=== PATIENT | female | born 1990 | race Caucasian/White ===

== ENCOUNTER 2019-11-09 23:48 | Emergency (ER) | payer SELFPAY ==
[2019-11-10 00:12] VITALS: BP 132/80
[2019-11-10] MEDS ORDERED: CYCLOBENZAPRINE HCL 10 MG TABLET PO ONE (00:30)
[2019-11-10] MEDS ORDERED: KETOROLAC TROMETHAMINE 60 MG/2 ML SDV IM ONE (00:30)
--- NOTE | 2019-11-10 00:34 | ER Document Report ---
HPI - HPI Patient complains to provider of: Back pain Time Seen by Provider: 11/10/19 00:24 Pain Level: 5 Context: 29-year-old female past medical history significant for diabetes, depression, hypertension, anemia, chronic back pain presents to the emergency room with worsening back pain that started 3 days ago. Has gotten worse today. Denies any acute trauma or injury. Pain radiates down her legs. Denies any loss control of her bowels or bladder. No saddle anesthesia. No red flags. States is able to walk but is painful. Tried taking Motrin 3 days ago without relief. States she is been smoking marijuana with some relief until today. No history of herniated disks. She denies any chance of . Associated Symptoms: None Exacerbated by: Movement, Walking Relieved by: Denies Similar symptoms previously: Yes - History of chronic back pain Recently seen / treated by doctor: No - ROS Systems Reviewed and Negative: Yes All other systems reviewed and negative - CONSTITUTIONAL Constitutional: DENIES: Fever - NEURO Neurology: DENIES: Weakness - RESPIRATORY Respiratory: DENIES: Trouble Breathing, Coughing - GASTROINTESTINAL Gastrointestinal: DENIES: Abdominal Pain, Nausea - URINARY Urinary: DENIES: Dysuria, Urgency, Frequency - REPRODUCTIVE Reproductive: DENIES: : - MUSCULOSKELETAL Musculoskeletal: REPORTS: Back Pain - DERM Skin Color: Normal Skin Problems: None Past Medical History - General Information source: Patient - Social History Smoking Status: Never Smoker Frequency of alcohol use: None Drug Abuse: Marijuana Family History: Reviewed & Not Pertinent - Past Medical History Cardiac Medical History: Reports: Hx Hypertension Endocrine Medical History: Reports: Hx Diabetes Mellitus Type 2 Psychiatric Medical History: Reports: Hx Depression Other: Anemia Vertical Provider Document - CONSTITUTIONAL Agree With Documented VS: Yes Exam Limitations: No Limitations General Appearance: Moderate Distress - INFECTION CONTROL TRAVEL OUTSIDE OF THE [place] IN LAST 30 DAYS: No - HEENT HEENT: Atraumatic, Normocephalic - NECK Neck: Normal Inspection, Supple, Thyroid Normal - RESPIRATORY Respiratory: Breath Sounds Normal, No Respiratory Distress, Chest Non-Tender - CARDIOVASCULAR Cardiovascular: Regular Rate, Regular Rhythm, No Murmur - BACK Back: Abnormal Inspection - There is tenderness on palpation from L4-S1. Tenderness over the right sciatic notch. Muscle spasms of the lower lumbar region. Positive straight leg raising on the right at 40 degrees. Negative straight leg raising on the left.. negative: CVA Tenderness-Right, CVA Tenderness-Left - MUSCULOSKELETAL/EXTREMETIES Musculoskeletal/Extremeties: FROM, Non-Tender - NEURO Level of Consciousness: Awake, Alert, Appropriate Motor/Sensory: No Motor Deficit, No Sensory Deficit Deep Tendon Reflexes: 2+ - DERM Integumentary: Warm, Dry, No Rash Course - Re-evaluation Re-evalutation: 11/10/19 01:01 Patient is resting and she states she has had some relief in pain. Patient states she feels well enough to go home. Will be discharged home on Flexeril and naproxen. She was counseled on the need to follow-up outpatient with orthopedics as discussed. Patient was given strict return to the emergency room guidelines. Return for any new or worsening symptoms. All questions were answered. Patient verbalized understanding and agrees with plan of care. - Vital Signs Vital signs: Temp Pulse Resp BP Pulse Ox 98.2 F 88 16 132/80 H 99 11/10/19 00:22 11/10/19 00:11 11/10/19 00:11 11/10/19 00:11 11/10/19 00:11 Discharge - Discharge Clinical Impression: Back pain with left-sided sciatica Condition: Stable Disposition: HOME, SELF-CARE Instructions: Low Back Pain ([facility]), Sciatica ([facility]) Additional Instructions: You have been seen in the Emergency Department (ED) today for back pain. Your workup and exam have not shown any acute abnormalities and you are likely suffering from muscle strain or possible problems with your discs, but there is no treatment that will fix your symptoms at this time. Please take the Flexeril and naproxen that has been prescribed as directed. You should also purchase a local lidocaine cream such as "aspercreme with lidocaine" and use per bottle instructions to the affected area. Apply heat to the area as often as you are able. Continue to keep active and avoid prolonged periods of bed rest. Please follow up with your doctor as soon as possible regarding today's ED visit and your back pain. Return to the ED for worsening back pain, fever, weakness or numbness of either leg, or if you develop either (1) an inability to urinate or have bowel movements, or (2) loss of your ability to control your bathroom functions (if you start having "accidents"), or if you develop other new symptoms that concern you.concern you. Prescriptions: Cyclobenzaprine HCl [Flexeril 10 mg Tablet] 10 mg PO TIDP PRN #15 tab PRN Reason: Naproxen 500 mg PO BID PRN #14 tablet PRN Reason: Forms: Return to Work Referrals: [facility] [Provider Group] - Follow up as needed (For follow-up appointment with Dr. Burns if not improving in 2 to 3 days.)
== END 2019-11-10 01:10 | disposition home or self-care (01) ==
LOC: ER 23:48
DX: M54.32 Sciatica, left side (principal); M54.9 Dorsalgia, unspecified; G89.29 Other chronic pain; E11.9 Type 2 diabetes mellitus without complications; I10 Essential (primary) hypertension
CPT/HCPCS: 99284; 96372; J1885

== ENCOUNTER 2019-11-16 10:37 | Emergency (ER) | payer SELFPAY ==
[2019-11-16] MEDS ORDERED: KETOROLAC TROMETHAMINE 60 MG/2 ML SDV IM ONE (11:09)
--- NOTE | 2019-11-16 11:11 | ER Document Report ---
ED Medical Screen (RME) - General Chief Complaint: Leg Pain Stated Complaint: RIGHT LEG PAIN Time Seen by Provider: 11/16/19 11:06 Mode of Arrival: Ambulatory Information source: Patient Notes: Patient is a 29-year-old female presenting to the emergency department with complaints of sudden onset right posterior leg pain. She reports the pain is up behind her thigh. She denies any known injury, denies any history of this. Denies any history of DVT, she is a non-smoker, she is not on any OCPs, she has not had any recent travel. We will have patient seen in the back so she can be in the bed and have a full evaluation as exam is limited due to position in triage and lack of patient gown. I have greeted and performed a rapid initial assessment of this patient. A comprehensive ED assessment and evaluation of the patient, analysis of test results and completion of the medical decision making process will be conducted by additional ED providers. I have specifically instructed the patient or family members with the patient to immediately return to any nursing staff should anything change in the patient's condition or with their chief complaint. TRAVEL OUTSIDE OF THE [place] IN LAST 30 DAYS: No - Related Data Allergies/Adverse Reactions: No Known Allergies Allergy (Verified 11/16/19 11:06) Home Medications: citalopram, metformin Past Medical History - Past Medical History Cardiac Medical History: Reports: Hx Hypertension Endocrine Medical History: Reports: Hx Diabetes Mellitus Type 2 Psychiatric Medical History: Reports: Hx Depression Past Surgical History: Reports: Hx Oral Surgery Physical Exam - Vital signs Vitals: Temp Pulse Resp BP Pulse Ox 98.6 F 99 20 166/88 H 97 11/16/19 10:47 11/16/19 10:47 11/16/19 10:47 11/16/19 10:47 11/16/19 10:47 Course - Vital Signs Vital signs: Temp Pulse Resp BP Pulse Ox 98.6 F 99 20 166/88 H 97 11/16/19 10:47 11/16/19 10:47 11/16/19 10:47 11/16/19 10:47 11/16/19 10:47
--- NOTE | 2019-11-16 13:14 | RADIOLOGY REPORT (SQ) ---
EXAM DESCRIPTION: CT LUMBAR SPINE WITHOUT IMAGES COMPLETED DATE/TIME: 11/16/2019 1:03 pm REASON FOR STUDY: pain in lower back/right radicular pain COMPARISON: None. TECHNIQUE: Axial images acquired through the lumbar spine without intravenous contrast. Images revi ewed with lung, soft tissue and bone windows. Reconstructed coronal and sagittal MPR images reviewed . All images stored on PACS. All CT scanners at this facility use dose modulation, iterative reconstruction, and/or weight based d osing when appropriate to reduce radiation dose to as low as reasonably achievable (ALARA). [facility]: Dose Right [facility]: CareDose [facility]: Dose Right [facility]: Teradose 4D [facility]: Pathogenetix RADIATION DOSE: mGy. LIMITATIONS: None. FINDINGS: SEGMENTATION: Normal. No transitional anatomy. ALIGNMENT: Normal. VERTEBRAL BODIES: No fractures. No dislocation. No acute findings. DISCS: Mild disc space narrowing at several levels. Broad central to right paracentral protrusion at the lumbosacral junction. This causes significant right lateral recess stenosis and displaces the r ight S1 nerve root. There is a small protrusion at the L4-5 level as well. PEDICLES, TRANSVERSE PROCESSES: No fractures. No dislocation. No acute findings. This appears to e xert significant mass effect on the proximal right S1 nerve root. FACETS, POSTERIOR ELEMENTS: No fractures. No dislocation. No spinal stenosis. HARDWARE: None in the spine. VISUALIZED RIBS: No fractures. SOFT TISSUES: No significant or acute finding in adjacent soft tissues. OTHER: No other significant finding. IMPRESSION: 1. Disc disease. Includes a large disc hernia at the L5-S1 level impinging on the right S1 nerve abhishek tKevon TECHNICAL DOCUMENTATION: JOB ID: [id number] Quality ID # [id number]: Final reports with documentation of one or more dose reduction techniques (e.g., Au tomated exposure control, adjustment of the mA and/or kV according to patient size, use of iterative reconstruction technique) 2010 [employer]- All Rights Reserved Reading location - IP/workstation name: [email or web address]
[2019-11-16] MEDS ORDERED: DEXAMETHASONE SOD PHOS INJ 10 MG/1 ML VIAL IM ONE ×2 (14:01→14:32)
--- NOTE | 2019-11-16 14:11 | ER Document Report ---
Entered by NGOC CRANE SCRIBE 11/16/19 1245 Acting as scribe for:DELFINO CARDOZO MD ED Neck/Back Problem - General Chief Complaint: Thigh Pain Stated Complaint: RIGHT LEG PAIN Time Seen by Provider: 11/16/19 11:06 Mode of Arrival: Ambulatory Information source: Patient Notes: This 29 year old female patient presents to the emergency department today with complaints of right posterior thigh pain. Patient was seen here one week ago for chronic back pain which is still present. She denies urinary or fecal incontinence or saddle anesthesia. TRAVEL OUTSIDE OF THE [place] IN LAST 30 DAYS: No - Related Data Allergies/Adverse Reactions: ketorolac [From Toradol] Allergy (Intermediate, Verified 11/16/19 11:15) Hives Home Medications: citalopram, metformin Past Medical History - General Information source: Patient - Social History Smoking Status: Never Smoker Cigarette use (# per day): No Chew tobacco use (# tins/day): No Frequency of alcohol use: None Drug Abuse: Marijuana Lives with: Family Family History: Reviewed & Not Pertinent Patient has homicidal ideation: No - Past Medical History Cardiac Medical History: Reports: Hx Hypertension Endocrine Medical History: Reports: Hx Diabetes Mellitus Type 2 Psychiatric Medical History: Reports: Hx Depression Past Surgical History: Reports: Hx Oral Surgery Review of Systems - Review of Systems Constitutional: No symptoms reported EENT: No symptoms reported Cardiovascular: No symptoms reported Respiratory: No symptoms reported Gastrointestinal: No symptoms reported Genitourinary: No symptoms reported Female Genitourinary: No symptoms reported Musculoskeletal: See HPI, Back pain, Muscle pain - right posterior thigh Skin: No symptoms reported Hematologic/Lymphatic: No symptoms reported Neurological/Psychological: No symptoms reported -: Yes All other systems reviewed and negative Physical Exam - Vital signs Vitals: Temp Pulse Resp BP Pulse Ox 98.6 F 99 20 166/88 H 97 11/16/19 10:47 11/16/19 10:47 11/16/19 10:47 11/16/19 10:47 11/16/19 10:47 - Notes Notes: Physical Exam: General: Alert, appears well. HEENT: Normocephalic. Atraumatic. PERRL. Extraocular movements intact. Oropharynx clear. Neck: Supple. Non-tender. Respiratory: No respiratory distress. Clear and equal breath sounds bilaterally. Cardiovascular: Regular rate and rhythm. Abdominal: Normal Inspection. Non-tender. No distension. Normal Bowel Sounds. Back: Right sided L5-S1 tenderness to palpation. No gross abnormalities. Extremities: Moves all four extremities. Upper extremities: Normal inspection. Normal ROM. Lower extremities: Complains of right posterior thigh pain which is not particularly tender. No edema. Normal ROM. Neurological: Normal cognition. AAOx4. Normal speech. Psychological: Normal affect. Normal Mood. Skin: Warm. Dry. Normal color. Course - Re-evaluation Re-evalutation: 11/16/19 14:03 Patient resting comfortably not showing acute signs of distress right now. Patient continues to have burning pain in her right thigh posteriorly and lower lumbar pain transverse across the L5-S1 distribution. - Vital Signs Vital signs: Temp Pulse Resp BP Pulse Ox 98.6 F 99 20 166/88 H 97 11/16/19 10:47 11/16/19 10:47 11/16/19 10:47 11/16/19 10:47 11/16/19 10:47 - Diagnostic Test Radiology reviewed: Image reviewed, Reports reviewed Radiology results interpreted by me: 11/16/19 14:05 CT scan LS-spine shows a large disc protrusion at the L5-S1 pushing on the S1 right nerve root. Discharge - Discharge Clinical Impression: Lumbar disc disease with radiculopathy, Right sided sciatica Condition: Fair Disposition: HOME, SELF-CARE Additional Instructions: Sciatica Your symptoms suggest "sciatica." The pain of sciatica typically radiates down the leg. Numbness in the foot or calf may also occur. Sciatica is caused by irritation of the sciatic nerve or its branches. The irritation can be due to a herniated disk in the spine, swelling and inflammation in the muscles surrounding the sciatic nerve, or direct injury of the nerve itself. Most cases of sciatica will resolve with medical treatment. Bed rest is usually recommended initially. Surgery is only necessary when the condition will not improve with rest and antiinflammatory medication. Muscle relaxers are often given if muscle soreness is present. A CAT scan of the back may be performed if a herniated disk is suspected. Re-examination is necessary if you develop increasing numbness, localized weakness in the foot or ankle, or if the pain does not respond to rest. Prescriptions: Methylprednisolone [Medrol Dosepack (4 mg/Tab) 21 Tab/Dosepak] 4 mg PO ASDIR PRN #21 tab.ds.pk PRN Reason: Ibuprofen [Motrin 800 mg Tablet] 800 mg PO Q8H PRN #30 tab PRN Reason: pain Gabapentin [Neurontin 100 mg Capsule] 100 mg PO ASDIR PRN #30 capsule PRN Reason: I personally performed the services described in the documentation, reviewed and edited the documentation which was dictated to the scribe in my presence, and it accurately records my words and actions.
[2019-11-16] MEDS ORDERED: DEXAMETHASONE SOD PHOSPHATE INJ 4 MG/1 ML VIAL IM ONE (14:37)
[2019-11-16 15:17] VITALS: BP 158/85
== END 2019-11-16 15:17 | disposition home or self-care (01) ==
LOC: ER 10:37
DX: M51.17 Intervertebral disc disorders with radiculopathy, lumbosacral region (principal); I10 Essential (primary) hypertension; E11.9 Type 2 diabetes mellitus without complications; Z79.899 Other long term (current) drug therapy; Z79.84 Long term (current) use of oral hypoglycemic drugs; Z88.8 Allergy status to other drugs, medicaments and biological substances
CPT/HCPCS: 99285; 96372; 72131; J1100